=== PATIENT | female | born 1955 | race Caucasian/White ===

== ENCOUNTER → 2016-07-31 | Outpatient (CLI) | payer BC ==
--- NOTE | 2016-08-21 10:12 | ENG ---
DATE OF SERVICE: INDICATIONS FOR EXAMINATION: 61-year-old female with onset of dizziness, specifically vertigo, about 1 month ago, and has been coming in spells every day, lasting a few seconds at a time and precipitated by looking up or head back position, bending over, or head down position or moving the head. Has difficulty with hearing on the right. No tinnitus or pressure in the ears. AGE: 61Y FINDINGS: Saccades show intact peak velocity, accuracy and latencies. Gaze with fixation shows no nystagmus in any of the directions of gaze including centrally with vision denied. Tracking shows no breakups. Optokinetic nystagmus for some reason could not be done. Repeated attempts were made by the nuclear fuel processing technician but were unable to be obtained. Static position testing in 6 positions, first with eyes open and then with vision denied, shows no nystagmus. Shelton-Hallpike maneuvers were negative bilaterally. Caloric testing shows 27% unilateral left caloric weakness, which is significant. IMPRESSION: 1. Mild left chronic well-compensated vestibulopathy. 2. [employer] unable to obtain optokinetic on the patient, uncertain reason. Several attempts were made. This could possibly mask potential central nervous system function. Other features of this test are unremarkable.
== END | disposition home or self-care (01) ==
LOC: NEUROMAIN 06:49
PROVIDERS: ATTEND Otolaryngology
DX: H81.22 Vestibular neuronitis, left ear (principal)
CPT/HCPCS: 92540